=== PATIENT | female | born 1945 | race Caucasian/White ===

== ENCOUNTER → 2016-11-21 | Day surgery (SDC) | payer MEDICARE, OTHER ==
[~2016-11-21] VITALS: Ht 165.1 cm; Wt 69.2 kg
[~2016-11-21] MED LIST: *morphine SULFATE 8 MG/ML PERIprocedure ONLY ONE; ACETAMINOPHEN 1000 MG/100 ML VIAL IV SCH; ACETAMINOPHEN/HYDROcodone 325 MG/5 MG TAB PO PRN; ADDE10 PO; ASPI-110 PO; ASPI81TA21 PO; BUPIVACAINE/EPINEPHRINE 0.25% PF 30 ML VIAL OTHER ONE; CARV6.252 PO; DEXAMETHASONE SOD PHOS 4 MG/ML VIAL ONE; DO NOT ADM ANY ANTICOAGULANT DRUGS XX PRN; DOCU1CAP39 PO; FAMOTIDINE 20 MG/2 ML VIAL ONE; FOSA70TA PO; FURO20TA PO; INSULIN HUMAN REGULAR 1,000 UNITS/10 ML VIAL SQ PRN; KETOROLAC TROMETHAMINE 60 MG/2 ML (IM) VIAL IM ONE; LACTATED RINGER'S 1000 ML INJ 1,000 ML IV ONE; LACTATED RINGER'S 1000 ML IV SCH; LASI20TA PO; METOPROLOL TARTRATE 25 MG TAB PO PRN; MIDAZOLAM HCL 2 MG/2 ML VIAL ONE; MORPHINE SULFATE 4 MG/ML INJ IV PRN; NEOSTIGMINE 3 MG/3 ML SYR IV ONE; NORC5TAB PO; NORC7.5T PO; ONDANSETRON HCL 4 MG/2 ML VIAL IV PUSH ONE; ONDANSETRON HCL 4 MG/2 ML VIAL IV PUSH PRN; POTA-243 PO; PROPOFOL 200 MG/20 ML AMP IV ONE; RIVA10 PO; SENN-29 PO; SIMV20 PO; SIMV20TA PO; SODIUM CHLORID 0.9% 500 ML IV SCH; SPIR25TA PO; WALKER STANDARD; ePHEDrine/NS 50 MG/5 ML SYR IV ONE; fentaNYL CITRATE 250 MCG/5 ML AMP ONE
[2016-11-21 10:04] VITALS: BP 150/75; PULSE 80; RESP 20; TEMP 97.7; O2SAT 96
[2016-11-21 10:06] LABS: AUTOMATED NEUTROPHIL # 9.9 TH/MM3 (1.8-7.7); BASOPHIL # 0.2 TH/MM3 (0-0.2); BASOPHIL % 1.2 % (0.0-2.0); EOSINOPHIL # 0.3 TH/MM3 (0-0.4); EOSINOPHIL % 1.8 % (0.0-4.0); HEMO FLAGS DIFF FINAL; LYMPH % 21.6 % (9.0-44.0); LYMPHOCYTE # 3.1 TH/MM3 (1.0-4.8); MEAN CELL VOLUME 87.6 FL (80.0-100.0); MEAN CORPUSCULAR HEMOGLOBIN 30.1 PG (27.0-34.0); MEAN CORPUSCULAR HGB CONC 34.4 % (32.0-36.0); MONO % 5.2 % (0.0-8.0); NEUT % 70.2 % (16.0-70.0); PLATELET COUNT 375 TH/MM3 (150-450); RED BLOOD COUNT 4.34 MIL/MM3 (4.00-5.30); RED CELL DISTRIBUTION WIDTH 13.3 % (11.6-17.2); WHITE BLOOD COUNT 14.1 TH/MM3 (4.0-11.0)
[2016-11-21 10:28] LABS: BICARBONATE 26.5 MEQ/L (21.0-32.0); POTASSIUM 3.9 MEQ/L (3.5-5.1)
[2016-11-21] MEDS: VANCOMYCIN HCL 1000 MG ON-CALL/NS 250 ML IV SCH ×4 (10:50→10:52)
--- NOTE | 2016-11-21 14:08 | HHI.PR ---
cc: Christian Berger MD Immediate Post Op Note Procedure Date: Nov 21, 2016 Pre Op Diagnosis: Acute appendicitis Post Op Diagnosis: Same, without perforation Surgeon: Christian Berger Dietary Assistant(s): RORO Aguilera Procedure: Laparoscopic appendectomy Complications: None Specimen(s) removed: Appendix to pathology Estimated blood loss: <30 ml Anesthesia: General Drains: None IVF (900 ml) Patient to: PACU Patient Condition: Good Date/Time of Procedure: SEE SURGICAL CARE RECORD Christian Berger MD Nov 21, 2016 14:08
[2016-11-21 15:14] VITALS: BP 123/54; PULSE 67; RESP 18; TEMP 97; O2SAT 96
--- NOTE | 2016-11-21 15:48 | EKG ---
Date Performed: 11/21/2016 Time Performed: 09:49:23 PTAGE: 70 years EKG: ELECTRONIC VENTRICULAR PACEMAKER Compared to prior tracing no significant change ABNORMAL R HYTHM ECG PREVIOUS TRACING : 01/09/2016 23.28 DOCTOR: Archana Kaplan Interpretating Date/Time 11/21/2016 15:45:35
--- NOTE | 2016-12-04 19:06 | MP ---
cc: UMA BERGER M.D. DATE OF SURGERY 11/21/16 PROCEDURE Laparoscopic appendectomy. PREOPERATIVE DIAGNOSIS Subacute appendicitis with continued symptoms. POSTOPERATIVE DIAGNOSIS Subacute appendicitis with continued symptoms. ANESTHESIA General endotracheal SURGEON Denice Berger MD ESTIMATED BLOOD LOSS Less than 30 joules fluids 900 joules crystalloid COMPLICATIONS None. DRAINS None. SPECIMEN Appendix to pathology. PROCEDURE IN DETAIL The patient was taken to the operating room and placed on the operating table in the supine position. After an adequate level of general endotracheal anesthesia was achieved, the abdomen was prepped and draped in usual fashion. Time-out was taken confirming the correct patient, site and procedure to be performed. Incision was made in the umbilicus and incision carried down through the fascia sharply. The peritoneal cavity was directly visualized. A 12 mm balloon trocar was inserted and the balloon inflated. The patient was placed in Trendelenburg position. Two 5 mm trocars were placed with the first in the right lower quadrant and the second in the suprapubic region. Both entered the abdominal cavity under direct vision uneventfully. The appendix was manipulated upwards and was seen to be somewhat inflamed. The mesoappendix was divided with the harmonic scalpel and dissection was carried back to the base of the appendix. The appendix was then sutured at the base with a 0-PDS Endoloop. One cm distal to this the appendix was divided with the harmonic scalpel. The appendix was placed into an EndoCatch device and removed via the umbilical port while observing via the right lower quadrant 5-mm trocar site. The appendix was passed off the table. The abdomen was reexamined, irrigated and the appendiceal stump and mesoappendix were examined and seen to be clean and dry. There did not appear to be any malignant type process causing this patient's appendicitis. At this point, insufflation was discontinued and the 5 mm trocars were removed. Under direct vision, no bleeding was noted from the trocar sites. The laparoscope and umbilical port were then removed. The fascia was closed in the umbilicus with 0 Vicryl suture in both a simple interrupted and [id number] fashion. The remaining local anesthetic was injected into the trocar sites and all of the trocar sites were closed at the skin with 4-0 Vicryl in an interrupted buried fashion. All trocar sites were dressed with Steri-Strips. The patient was extubated and taken back to the recovery room in stable condition. She tolerated the procedure well. MD MEHDI Jones/ /8:58 AM /6:58 PM
== END | disposition home or self-care (01) ==
LOC: HSDC 09:11
PROVIDERS: ATTEND Surgery Trauma Surgery
DX: K35.80 Unspecified acute appendicitis (principal); I48.91 Unspecified atrial fibrillation; I10 Essential (primary) hypertension; E78.5 Hyperlipidemia, unspecified; M81.0 Age-related osteoporosis without current pathological fracture
CPT/HCPCS: 00840; 44970; 80048; 85025; 88304; 93005; J0131; J1100; J1885; J2250; J2270; J2405; J2710; J3010; J3370; J7050; J7120